=== PATIENT | male | born 1975 | race Caucasian/White ===

== ENCOUNTER 2022-12-09 09:55 | Outpatient (CLI) | payer OTHER, SELFPAY ==
[2022-12-09 11:28] LABS: Hemoglobin 16.1 g/dL (13.5-17.5); Mean Corpuscular Hemoglobin 32.8 pg (27.0-33.0); Mean Corpuscular Volume 93.7 fl (81.2-95.1); Mean Platelet Volume 9.8 fl (7.4-10.4); Platelet Count 281 10x3/uL (150-450); RBC Distribution Width 11.6 % (11.5-14.5); Red Blood Cell (RBC) Count 4.91 10x6/uL (4.32-5.72); White Blood Cell (WBC) Count 7.6 10x3/uL (3.5-10.5)
[2022-12-09 11:45] LABS: Anion Gap 14 mmol/L (10-20); BUN (Urea Nitrogen) 13 mg/dL (8.9-20.6); Calc. Creatinine Clearance 0 mL/min (70-130); Calcium 9.6 mg/dL (7.8-10.44); Carbon Dioxide 25 mmol/L (22-29); Chloride 105 mmol/L (98-107); Estimated GFR 108; Glucose 77 mg/dL (70-105); Potassium 4.5 mmol/L (3.5-5.1); Sodium 139 mmol/L (136-145)
[2022-12-09 11:57] LABS: PTT 27.3 sec (22.0-33.0); Prothrombin Time 10.7 sec (9.5-12.1)
== END 2022-12-09 09:56 | disposition home or self-care (01) ==
LOC: LABBT 09:55
PROVIDERS: ATTEND Surgery
DX: Z01.818 Encounter for other preprocedural examination (principal); M51.16 Intervertebral disc disorders with radiculopathy, lumbar region; M48.061 Spinal stenosis, lumbar region without neurogenic claudication
CPT/HCPCS: 80048; 85027; 85610; 85730; 93005; 93010

== ENCOUNTER 2022-12-13 08:24 | Observation (INO) | payer OTHER ==
[2022-12-13] MEDS ORDERED: Acetaminophen 500 MG TAB ONE (09:44)
[2022-12-13] MEDS ORDERED: Vancomycin 1 GM VIAL ONE (10:05)
[2022-12-13] MEDS ORDERED: Thrombin 5000 UNITS/5 ML VIAL ONE ×2 (10:06→12:41)
[2022-12-13] MEDS ORDERED: CEFAZOLIN 2 GM VIAL ONE ×2 (10:14→17:32)
[2022-12-13] MEDS ORDERED: Sodium Chloride 0.9% 100 ML ONE ×2 (10:14→17:32)
[2022-12-13] MEDS ORDERED: fentaNYL PF 100 MCG/2 ML SYRINGE ONE (10:23)
[2022-12-13] MEDS ORDERED: PHENYLEPHRINE-NS 100 MCG/ML 10 ML SYRINGE ONE (10:27)
[2022-12-13] MEDS ORDERED: Ondansetron PF 4 MG/2 ML Vial ONE (10:27)
[2022-12-13] MEDS ORDERED: Lidocaine 1% PF 5 ML VIAL ONE (10:27)
[2022-12-13] MEDS ORDERED: NEOSTIGMINE 3 MG/3 ML SYR 3 MG/3 ML SYRINGE ONE (10:27)
[2022-12-13] MEDS ORDERED: Glycopyrrolate 0.2 MG/ML 5 ML SYRINGE ONE (10:27)
[2022-12-13] MEDS ORDERED: Rocuronium Bromide 10 MG/ML (10ML VIAL) ONE (10:27)
[2022-12-13] MEDS ORDERED: ePHEDrine 50 MG/ML VIAL ONE (10:27)
[2022-12-13] MEDS ORDERED: PROPOFOL 200 MG/20 ML VIAL ONE (10:27)
[2022-12-13] MEDS ORDERED: Dexamethasone 20 MG/5 ML VIAL ONE (10:27)
[2022-12-13] MEDS ORDERED: Ketorolac Tromethamine 30 MG/ML VIAL ONE (10:27)
[2022-12-13 10:46] LABS: SARS-CoV-2 NAA Rapid Test Not Detected (NotDetected)
[2022-12-13] MEDS ORDERED: Acetaminophen 325 MG TAB PO PRN (13:00)
[2022-12-13] MEDS ORDERED: Morphine 2 MG/ML VIAL SLOW IVP PRN (13:00)
[2022-12-13] MEDS ORDERED: diphenhydrAMINE 25 MG CAP PO PRN (13:00)
[2022-12-13] MEDS ORDERED: Ondansetron PF 4 MG/2 ML Vial IVP PRN (13:00)
[2022-12-13] MEDS ORDERED: hydrALAZINE 20 MG/ML VIAL SLOW IVP PRN (13:04)
[2022-12-13] MEDS ORDERED: valACYclovir 500 MG TAB PO PRN (13:04)
[2022-12-13] MEDS ORDERED: Cyclobenzaprine 10 MG TAB PO PRN (13:05)
[2022-12-13] MEDS ORDERED: Fentanyl 250 MCG/5 ML VIAL ONE (13:11)
[2022-12-13] MEDS ORDERED: HYDROmorphone 0.5 MG/0.5 ML SYRINGE ONE ×3 (14:23→16:40)
[2022-12-13] MEDS: CEFAZOLIN 2 GM in Sodium Chloride 0.9% 100 ML IVPB SCH (17:34)
[2022-12-13] MEDS ORDERED: HYDROmorphone 2 MG/ML VIAL ONE (18:30)
[2022-12-13] MEDS: Sodium Chloride 0.9% 1,000 ML IV SCH (20:41)
[2022-12-13] MEDS: HYDROcodone/Acetaminophen 7.5/325 mg Tablet PO PRN (21:07)
[2022-12-13 23:50] VITALS: BMI 37.3
[2022-12-14] MEDS: traMADol HCl 50 MG TAB PO PRN ×2 (01:06→08:45)
[2022-12-14] MEDS: CEFAZOLIN 2 GM in Sodium Chloride 0.9% 100 ML IVPB SCH (03:12)
[2022-12-14] MEDS: Sodium Chloride 0.9% 1,000 ML IV SCH (03:12)
[2022-12-14] MEDS: HYDROcodone/Acetaminophen 7.5/325 mg Tablet PO PRN ×2 (05:42→11:41)
[2022-12-14] MEDS ORDERED: Diazepam 5 MG TAB PO SCH (08:30)
[2022-12-14] MEDS ORDERED: Losartan 25 MG TAB PO SCH (09:00)
[2022-12-14] MEDS ORDERED: Cholecalciferol 1,000 UNITS (25 MCG) TAB PO SCH (09:00)
[2022-12-14] MEDS ORDERED: Multivit, Therapeutic 1 TAB PO SCH (09:00)
[2022-12-14] MEDS ORDERED: Ascorbic Acid 500 mg Chewable Tablet PO SCH (09:00)
[2022-12-14 12:53] VITALS: BP 126/53; TEMP 98.3
[2022-12-15] MEDS ORDERED: FLU VACC QS2022-23(6MOS UP)/PF 60 MCG/0.5 ML SYRINGE IM ONE (09:00)
== END 2022-12-14 13:20 | disposition home or self-care (01) ==
LOC: SDC 08:24 → SURG B 13:00
PROVIDERS: ADMIT Surgery; ATTEND Surgery
PROC: 01NB0ZZ Release Lumbar Nerve, Open Approach (ICD-10-PCS; principal; 2022-12-13)
PROC: 01NR0ZZ Release Sacral Nerve, Open Approach (ICD-10-PCS; 2022-12-13)
DX: M48.061 Spinal stenosis, lumbar region without neurogenic claudication (principal); M51.16 Intervertebral disc disorders with radiculopathy, lumbar region; I10 Essential (primary) hypertension; G47.30 Sleep apnea, unspecified; F17.220 Nicotine dependence, chewing tobacco, uncomplicated; Z86.16 Personal history of COVID-19; Z79.899 Other long term (current) drug therapy; Z88.5 Allergy status to narcotic agent; Z20.822 Contact with and (suspected) exposure to COVID-19
CPT/HCPCS: 96374; 96376; G0378; J1100; J1170; J1885; J2405; J2704; J3010; J3370; J3490; J7050; U0002